=== PATIENT | male | born 1980 | race Caucasian/White ===

== ENCOUNTER 2021-06-21 12:39 | Emergency (ER) | payer BC, SELFPAY ==
[2021-06-21 12:45] VITALS: BP 142/88; PULSE 78; RESP 18; TEMP 36.7; O2SAT 95; BMI 33.6
--- NOTE | 2021-06-21 13:10 | ED.NEUROSD ---
HPI - Neuro Symptoms/Deficit General Chief Complaint: Neuro Symptoms/Deficit Stated Complaint: Issues With Left Side of Face Time Seen by Provider: 06/21/21 12:58 Source: patient Mode of arrival: Ambulatory History of Present Illness HPI Narrative: Patient is a 40-year-old male here for evaluation of weakness to the left side of his face and irritation to his left eye. He started noticing that his left eye was irritated on of last week. He noticed that his eye was very watery. Today he started noticing that he was talking funny and having problems swallowing. He also noticed the left side of his mouth does not go up when he smiles. He denies any headaches. No neurologic symptoms in his upper lower extremities. On Anticoagulants: No Related Data Previous Rx's Medication Instructions Recorded prednisone 20 mg tablet 60 mg PO DAILY 7 Days #21 tab 06/21/21 valacyclovir 1 gram tablet 1,000 mg PO TID 7 Days #21 tab 06/21/21 Allergies Allergy/AdvReac Type Severity Reaction Status Date / Time No Known Drug Allergies Allergy Verified 06/21/21 12:59 Review of Systems Constitutional Constitutional: Reports system reviewed and no additional complaints, except as documented, Denies fever(s) and Denies headache(s) Eyes Eyes: Reports as per HPI ENT Ears, Nose, Mouth, and Throat: Reports as per HPI and Denies headache(s) Cardiovascular Cardiovascular: Reports system reviewed and no additional complaints, except as documented Respiratory Respiratory: Reports system reviewed and no additional complaints, except as documented Integumentary/Breasts Skin/Breast: Reports system reviewed and no additional complaints, except as documented Neurologic Neurologic: Reports system reviewed and no additional complaints, except as documented, Reports as per HPI and Denies headache(s) Hematologic/Lymphatic On Anticoagulants: No Allergic/Immunologic Allergic/Immunologic: Reports system reviewed and no additional complaints, except as documented Patient History Medical History Patient denies medical problems Social History Smoking Status: Current every day smoker Smoking Status: Current every day smoker alcohol intake frequency: 0-2 drinks per day Substance Use Type: does not use Exam Initial Vital Signs Initial Vital Signs: Vital Signs Temperature 98.1 F 06/21/21 12:45 Pulse Rate 78 06/21/21 12:45 Respiratory Rate 18 06/21/21 12:45 Blood Pressure 142/88 H 06/21/21 12:45 Pulse Oximetry 95 06/21/21 12:45 Const General: cooperative, comfortable, well developed and well groomed Limitations: mental status not altered HENMT Head: normal to inspection and normocephalic Ears: TM's normal bilaterally Mouth: oral mucosae normal and moist mucous membranes Teeth and gingiva: fair dentition Eyes Pupils: PERRL EOM: EOM intact bilaterally Other: No corneal abrasion or uptake or dendrites located on the left eye with fluorescein staining. Neck Lymphatic: No lymphadenopathy Resp Effort & Inspection: normal respiratory effort Cardio Rate: regular rate Skin General: no rashes or lesions noted Neuro General: patient alert, patient awake and moves all extremities Speech: speech normal Gait: normal gait Other: Patient has motor deficits to the left side of his face to include his forehead and his left cheek. The rest of his cranial nerves unremarkable. There are no sensory deficits noted. Extrem General: normal to inspection and capillary refill normal Psych Appearance: grossly normal and well kempt Course Orders Ordered: Discontinued Medications Fluorescein Sodium (Fluorescein 1 Mg Strip) 1 mg EYE-BOTH NOW ONE Stop: 06/21/21 13:10 Last Admin: 06/21/21 13:28 Dose: 1 mg Documented by: BTONER Vital Signs Vital signs: Vital Signs - 8 hr 06/21/21 12:45 Temperature 98.1 F Pulse Rate 78 Respiratory Rate 18 Blood Pressure 142/88 H Pulse Oximetry 95 MDM - Neuro Symptoms/Deficit MDM Narrative Medical decision making narrative: Patient's physical exam today is consistent with Chung's palsy. Considered other etiologies such as stroke however I do feel we should hold on further workup. Will start the patient on steroids and also antiviral medications. Patient was given strict return precautions and follow-up instructions. He expressed understanding and agreement. Discharge Plan Departure Patient Disposition: Home Clinical Impression: Chung's palsy Instructions: Chung Palsy (Alternative Therapy), Chung Palsy Activity Restrictions/Additional Instructions: It is important that you protect your left eye. You may need to tape it shut at night when you sleep and also use the eyedrops to keep it moist. We do need to start you on medications. They were sent to [facility] in [place]. Contact your primary doctor for a follow-up. Return to the emergency department for any new or worsening symptoms. Prescriptions: New prednisone 20 mg tablet 60 mg PO DAILY 7 Days Qty: 21 0RF valacyclovir 1 gram tablet 1,000 mg PO TID 7 Days Qty: 21 0RF Referrals: Alvarado Evans MD [Primary Care Provider] -
[2021-06-21] MEDS: FLUORESCEIN 1 MG STRIP EYE-BOTH (13:28)
[2021-06-21 14:10] VITALS: BP 148/78; PULSE 74; RESP 17; O2SAT 99
== END 2021-06-21 14:10 | disposition home or self-care (01) ==
PROVIDERS: Emergency Provider Emergency Medicine; PCP Family Medicine
DX: G51.0 Bell's palsy (principal); F17.200 Nicotine dependence, unspecified, uncomplicated
CPT/HCPCS: 99282

== ENCOUNTER 2024-07-05 12:06 | Emergency (ER) | payer OTHER, SELFPAY ==
[2024-07-05 12:29] VITALS: BP 161/89; PULSE 55; RESP 16; TEMP 37; O2SAT 98; BMI 23.6
--- NOTE | 2024-07-05 13:39 | ED.BACK ---
HPI - Back Pain/Injury <Adalgisa Baig PA-C - Last Filed: 07/05/24 15:28> General Chief Complaint: Back Pain/Injury Stated Complaint: injured back at work Time Seen by Provider: 07/05/24 13:39 Source: patient History of Present Illness HPI Narrative: Mr. Pierre is a pleasant 43-year-old male with no reported past medical history who presents to the emergency department for bilateral lower back pain after he accidentally fell off the back of a work truck landing on his feet. Patient states was loading plywood onto truck when he accidentally fell off landing on his feet. Did not fall forward or backwards. Experienced immediate pain in the low back which made him throw up due to the severity. He has taken no medications prior to arrival. No upper back pain, heel pain, ankle pain, knee pain. No chest pain, shortness of breath, LOC. no hematuria or dysuria. He ambulates independently. No numbness or tingling of the lower extremities. Related Data Previous Rx's Medication Instructions Recorded lidocaine 5 % topical patch 1 patch topical DAILY #15 ea 07/05/24 (Lidoderm) methocarbamol 500 mg tablet 500 mg PO BEDTIME #10 tabs 07/05/24 naproxen 500 mg tablet 500 mg PO BID PRN pain #10 tabs 07/05/24 Allergies Allergy/AdvReac Type Severity Reaction Status Date / Time No Known Drug Allergies Allergy Verified 07/05/24 12:33 Review of Systems <Adalgisa Baig PA-C - Last Filed: 07/05/24 15:28> Review of Systems ROS Unobtainable: All systems reviewed & are unremarkable except as noted in HPI and below Patient History <Adalgisa Baig PA-C - Last Filed: 07/05/24 15:28> Medical History Patient denies medical problems Social History Smoking Status: Current every day smoker Smoking Status: Current every day smoker alcohol intake frequency: 0-2 drinks per day Exam <Adalgisa Baig PA-C - Last Filed: 07/05/24 15:28> Narrative Exam Narrative: GENERAL: 43 year old patient appears stated age. Well-developed patient, in no acute distress. HEAD: Atraumatic. Normocephalic. NECK: Trachea midline. Cervical ROM intact. CARDIOVASCULAR: Regular rate and rhythm. RESPIRATORY: ?Nonlabored respirations. ?Speaking in clear, full sentences. ?Clear to auscultation. Breath sounds equal bilaterally. No wheezes, rales, or rhonchi. ? GASTROINTESTINAL: Abdomen soft, non-tender, nondistended. EXTREMITIES: No edema or joint tenderness. BACK: Subjective tenderness in bilateral lumbar paraspinal muscle region. Pain worse with range of motion. No midline crepitus or deformities palpated. NEURO: AOx3. ?Clear speech. ?Moves all 4 extremities appropriately. SKIN: No rash or erythema of visible areas Initial Vital Signs Initial Vital Signs: Vital Signs Temperature 98.6 F 07/05/24 12:29 Pulse Rate 55 L 07/05/24 12:29 Respiratory Rate 16 07/05/24 12:29 Blood Pressure 161/89 H 07/05/24 12:29 Pulse Oximetry 98 07/05/24 12:29 Oxygen Delivery Method Room Air 07/05/24 12:29 <Suzanne Garcia MD - Last Filed: 07/05/24 18:24> Initial Vital Signs Initial Vital Signs: Vital Signs Temperature 98.6 F 07/05/24 12:29 Pulse Rate 55 L 07/05/24 12:29 Respiratory Rate 16 07/05/24 12:29 Blood Pressure 161/89 H 07/05/24 12:29 Pulse Oximetry 98 07/05/24 12:29 Oxygen Delivery Method Room Air 07/05/24 12:29 Course <Adalgisa Baig PA-C - Last Filed: 07/05/24 15:28> Orders Ordered: ED Orders 07/05/24 13:44 CT lumbar spine wo con Stat Discontinued Medications Acetaminophen (Acetaminophen 325 Mg Tablet) 975 mg PO NOW ONE Stop: 07/05/24 13:45 Last Admin: 07/05/24 13:52 Dose: 975 mg Documented By: DORIS Ketorolac Tromethamine (Ketorolac 30 Mg/Ml Vial) 30 mg IM NOW ONE Stop: 07/05/24 13:45 Last Admin: 07/05/24 13:52 Dose: 30 mg Documented By: DORIS Vital Signs Vital signs: Vital Signs - 8 hr 07/05/24 12:29 Temperature 98.6 F Pulse Rate 55 L Respiratory Rate 16 Blood Pressure 161/89 H Pulse Oximetry 98 Oxygen Delivery Method Room Air <Suzanne Garcia MD - Last Filed: 07/05/24 18:24> Orders Ordered: ED Orders 07/05/24 13:44 CT lumbar spine wo con Stat Discontinued Medications Acetaminophen (Acetaminophen 325 Mg Tablet) 975 mg PO NOW ONE Stop: 07/05/24 13:45 Last Admin: 07/05/24 13:52 Dose: 975 mg Documented By: DORIS Ketorolac Tromethamine (Ketorolac 30 Mg/Ml Vial) 30 mg IM NOW ONE Stop: 07/05/24 13:45 Last Admin: 07/05/24 13:52 Dose: 30 mg Documented By: DORIS Vital Signs Vital signs: Vital Signs - 8 hr 07/05/24 12:29 Temperature 98.6 F Pulse Rate 55 L Respiratory Rate 16 Blood Pressure 161/89 H Pulse Oximetry 98 Oxygen Delivery Method Room Air MDM - Back Pain/Injury <Adalgisa Baig PA-C - Last Filed: 07/05/24 15:28> Imaging Data Lumbar CT: Radiologist's Impression: PROCEDURE: CT LUMBAR SPINE WO CON INDICATIONS: bilateral low back pain after falling off truck land on feet TECHNIQUE: Noncontrast 3 mm thick sections acquired from the T12 level to the sacrum. Sagittal and coronal reformats were constructed. For radiation dose reduction, the following was used: automated exposure control. COMPARISON: None. FINDINGS: Image quality: Excellent. Bones: There is normal bony alignment. No acute vertebral body compression fractures. No suspicious lytic or blastic bony lesions. No pars defects. Slight degenerative disc height reduction posteriorly at L5-S1. Soft tissues: No retroperitoneal masses or hematomas. Visualized aorta is normal in caliber. IMPRESSION: Minimal degenerative changes along the low thoracic and lumbosacral spine with a slight degree of disc height reduction at the posterior 3rd of the L5-S1 disc space. No traumatic subluxation or paravertebral edema is found. [facility] Narrative Medical decision making narrative: 43-year-old male with no reported past medical history who presents to the emergency department for bilateral lower back pain after he accidentally fell off the back of a work truck landing on his feet. Differential diagnosis includes but is not limited to compression fracture, back sprain, strain, spasm, etc. On exam patient is in no acute distress, nontoxic appearing, ambulatory, no midline spinal tenderness or crepitus or deformity. He does have paraspinal lumbar pain. History concerning for possible compression injury, we will proceed with CT lumbar spine and treat pain with Tylenol and Toradol. CT lumbar spine reveals minimal degenerative changes along the low thoracic and lumbosacral spine with a slight degree of disc height reduction at the posterior 3rd of the L5-S1 disc space. No traumatic subluxation or paravertebral edema is found. Patient's symptoms most likely due to lumbar strain/sprain. Recommended ibuprofen and Tylenol or naproxen and Tylenol. Also prescribed Robaxin if needed and discussed risks. Prescribed lidocaine patches. Recommended gentle stretching and avoiding heavy lifting. Provided with a work note for light duty x1 week. Patient feeling better after ED treatment. He verbalized understanding of all information and is stable for discharge home. He understands the importance of follow up with PCP in 2-3 days. ER return precautions discussed. Discharge Plan Departure Patient Disposition: Home Clinical Impression: Strain of lumbar region Qualifiers: Encounter type: initial encounter Qualified Code(s): S39.012A - Strain of muscle, fascia and tendon of lower back, initial encounter DDD (degenerative disc disease), lumbar Qualifiers: Disc-related pain type: discogenic back pain only Qualified Code(s): M51.360 - Other intervertebral disc degeneration, lumbar region with discogenic back pain only Instructions: DI for Back Strain or Sprain Activity Restrictions/Additional Instructions: Today you were evaluated for back pain. Your CT scan does not show any fractures but it does show some chronic degenerative disease. Your symptoms are likely related to strains of the back muscles. I have prescribed you naproxen to take for pain or you can use ibuprofen. It is safe to take Tylenol with either of these medications. I have also prescribed a muscle relaxer to take at night however this can make you drowsy so do not drink alcohol or operate heavy machinery/drive a car while taking muscle relaxers. You can use topical lidocaine patches as well to help with the pain. Please rest, do gentle stretching, and avoid heavy lifting. Please follow up with the primary care doctor for further evaluation. Please take Ibuprofen (Motrin/Advil) or Acetaminophen (Tylenol) for pain. These are available over the counter. You may take Ibuprofen 600 mg every 8 hours with food for pain. You may also take Acetaminophen 650 mg every 4-6 hours for pain. Do not exceed 3000 mg of Tylenol a day as this can cause liver damage. Do not drink alcohol with either of these medications. Please follow up with your primary care doctor within the next 2-3 days for ER follow-up. (If you do not have a PCP you can call [phone]. ?to schedule an appointment with an [facility] Primary Care Provider) IF YOU DEVELOP ANY NEW OR WORSENING SYMPTOMS, RETURN TO THE ER! Please read the attached instructions, they highlight more specific treatments and interventions for you at home. Thank you for letting me participate in your care, Adalgisa Baig PA-C Prescriptions: New methocarbamol 500 mg tablet 500 mg PO BEDTIME Qty: 10 0RF lidocaine [Lidoderm] 5 % adhesive patch,medicated 1 patch topical DAILY Qty: 15 0RF Rx Instructions: leave on most painful area for up to 12 hrs naproxen 500 mg tablet 500 mg PO BID PRN (Reason: pain) Qty: 10 0RF Referrals: Alvarado Evans MD [Primary Care Provider] - Stand Alone Forms: Patient Portal/API/Survey, Work Release Note ED Sign-out <Suzanne Garcia MD - Last Filed: 07/05/24 18:24> Cosign ED Attending Cosannalisaature Attestation: I was immediately available in the department for consultation throughout this patient's visit. Suzanne Garcia MD
--- NOTE | 2024-07-05 13:44 | DI.CT.S_ITS ---
PROCEDURE: CT LUMBAR SPINE WO CON INDICATIONS: bilateral low back pain after falling off truck land on feet TECHNIQUE: Noncontrast 3 mm thick sections acquired from the T12 level to the sacrum. Sagittal and coronal reformats were constructed. For radiation dose reduction, the following was used: automated exposure control. COMPARISON: None. FINDINGS: Image quality: Excellent. Bones: There is normal bony alignment. No acute vertebral body compression fractures. No suspicious lytic or blastic bony lesions. No pars defects. Slight degenerative disc height reduction posteriorly at L5-S1. Soft tissues: No retroperitoneal masses or hematomas. Visualized aorta is normal in caliber. IMPRESSION: Minimal degenerative changes along the low thoracic and lumbosacral spine with a slight degree of disc height reduction at the posterior 3rd of the L5-S1 disc space. No traumatic subluxation or paravertebral edema is found. Dictated by: Travis Ahuja M.D. on 07/05/2024 at 14:20 Approved by: Travis Ahuja M.D. on 07/05/2024 at 14:22
[2024-07-05] MEDS: ACETAMINOPHEN 325 MG TABLET 975 MG PO (13:52)
[2024-07-05] MEDS: KETOROLAC 30 MG/ML VIAL IM (13:52)
--- NOTE | 2024-07-05 15:44 | PC.NURSE ---
Pt states he slipped off truck after trying to grab something and landed on his feet but was having back pain. Pt denies midline back pain but states pain is bothersome on either side of middle of back. No loss of bladder or bowel.
== END 2024-07-05 15:46 | disposition home or self-care (01) ==
PROVIDERS: Emergency Provider Physician Assistant; PCP Family Medicine
DX: S39.012A Strain of muscle, fascia and tendon of lower back, initial encounter (principal); M51.360 Other intervertebral disc degeneration, lumbar region with discogenic back pain only; V89.9XXA Person injured in unspecified vehicle accident, initial encounter; Y99.0 Civilian activity done for income or pay
CPT/HCPCS: 72131; 96372; 99283; 99284; J1885

== ENCOUNTER 2024-10-09 07:17 | Day surgery (SDC) | payer BC, SELFPAY ==
[2024-09-26 09:28] VITALS: BMI 24.7
[2024-10-09] VITALS (10 sets, daily range): BP systolic 104–136; BP diastolic 54–81; PULSE 69–93; RESP 14–20; TEMP 36.4–36.6; O2SAT 90–100; BMI 24.7
[2024-10-09] MEDS: ACETAMINOPHEN 325 MG TABLET 975 MG PO (07:44)
[2024-10-09] MEDS: LACTATED RINGERS 1,000 ML 42 ML IV (07:45)
[2024-10-09] MEDS: ALBUTEROL/IPRATROPIUM 3 ML AMPUL INH ×2 (08:43→10:28)
--- NOTE | 2024-10-09 08:43 | PM.PREOP ---
Pre-operative Note COVID-19 COVID-19 status: Not tested Interval Note History & Physical reviewed/Exam performed by Physician: Yes Changes to H&P: No ASA Class (for procedural sedation): II
[2024-10-09] MEDS: CEFAZOLIN 2 GM/100 ML PREMIX 100 ML IV (09:02)
--- NOTE | 2024-10-09 09:12 | SUR.OPER ---
Supine on padded OR bed, head on pillow, arms padded and tucked at sides, legs uncrossed, safety belt at thigh, tape over blanket over lower legs .
[2024-10-09] MEDS: BUPIVACAINE 0.5% W/ EPI (PF) 30 ML VIAL INJ (09:15)
--- NOTE | 2024-10-09 10:15 | PM.OP.1 ---
Operative Date/Time/Diagnoses Date of procedure: 10/09/24 Time of procedure: 10:15 Pre-op diagnosis: Left inguinal hernia Post-op diagnosis: other (Direct left inguinal hernia) Procedure & Clinicians Procedure: Laparoscopic left inguinal hernia repair with mesh Same procedure as scheduled: Yes Surgeon: Tre Carlos Domain Architect: Roderick Lopez Anesthesia Type: General Operative Notes Procedure in detail: The patient was given preoperative antibiotics. The patient was brought to the operating room, placed on the table in the supine position with the arms tucked and general anesthesia was induced. The abdomen was prepped and draped in the usual fashion. A time-out was performed. A 1 cm transverse incision was created superior to the umbilicus and dissection was carried down to the fascia. The fascia was grasped with a Angeline clamp to elevate the abdominal wall. The fascia was scored transversely with cautery. A Peon clamp was used to salmeron the peritoneum. The Merry port was placed and the abdomen was insufflated to 15 mmHg. The camera was inserted, there was no evidence of any injury from the entry. There was a fairly large direct left inguinal hernia. There was no right inguinal hernia. 5 mm ports were placed under direct vision in the mid left and mid right abdomen. The patient was positioned in Trendelenburg. We created left peritoneal flap. The peritoneum was dissected off the left cord structures, the direct sac was reduced and the Zachary's ligament was exposed. A large left Bard mesh was brought in and placed over the defect with the medial edge against Zachary's ligament. We then closed the peritoneal flap with a running 3-0 barbed suture. We took one last look around the abdomen and saw no other abnormalities. The suture was removed and accounted for. The 5 mm ports were removed under direct vision. The abdomen was desufflated. The Merry port was removed. Additional local was injected into the fascia and the fascial incision was closed with 2 interrupted 0 Vicryl sutures. The skin incisions were closed with 4 Monocryl, Steri-Strips and Band-Aids. EBL: 10 mL Roderick MONTEIRO provided assistance with exposure, retraction and closure of incisions. Post-operative Condition: stable Disposition: PACU
[2024-10-09] MEDS: OXYCODONE IR 5 MG TABLET PO (10:45)
[2024-10-09] MEDS: hydrOXYzine 50 MG/ML INJ IM (10:57)
== END 2024-10-09 11:30 | disposition home or self-care (01) ==
PROVIDERS: PCP Family Medicine; Referring Provider Surgery; Visit Provider Surgery
PROC: 0YQ64ZZ Repair Left Inguinal Region, Percutaneous Endoscopic Approach (ICD-10-PCS; CPT 49650; principal; 2024-10-09 08:45)
DX: K40.90 Unilateral inguinal hernia, without obstruction or gangrene, not specified as recurrent (principal); F17.210 Nicotine dependence, cigarettes, uncomplicated
CPT/HCPCS: 49650; C1781; J0330; J0690; J1100; J1885; J2405; J2704; J3010; J3410; J3490

== ENCOUNTER 2025-01-28 13:30 | Emergency (ER) | payer OTHER, SELFPAY ==
[2025-01-28 13:34] VITALS: BP 165/94; PULSE 69; RESP 18; TEMP 36.6; O2SAT 98; BMI 24.4
[2025-01-28] MEDS: ACETAMINOPHEN 325 MG TABLET 975 MG PO (16:10)
[2025-01-28] MEDS: KETOROLAC 30 MG/ML VIAL IM (16:10)
[2025-01-28] MEDS: CYCLOBENZAPRINE 10 MG TABLET PO (16:10)
[2025-01-28 16:49] VITALS: BP 186/93; PULSE 61; RESP 14; O2SAT 99
--- NOTE | 2025-01-28 17:46 | ED.BACK ---
HPI - Back Pain/Injury <Renzo Damon PA-C - Last Filed: 01/28/25 17:51> General Chief Complaint: Back Pain/Injury Stated Complaint: Hurt back at work. Time Seen by Provider: 01/28/25 14:37 Source: patient History of Present Illness HPI Narrative: 44-year-old male presents to the ED with 1 day of mid back pain. Patient states that he was trying to move a vanity which was too heavy, causing his midback to seize up. No numbness, tingling, weakness, saddle paresthesias, urinary retention, fever, chills. Patient has not taken any medication for the pain thus far. Related Data Home Medications ?Medication ?Instructions ?Recorded ?Confirmed ibuprofen 400 mg tablet 400 mg PO Q6H PRN Pain (Scale 09/16/24 10/09/24 Score 4-6) methocarbamol 750 mg tablet 750 mg PO TID PRN Pain (Scale 09/16/24 10/09/24 Score 4-6) Previous Rx's ?Medication ?Instructions ?Recorded lidocaine 5 % topical patch 1 patch topical DAILY #15 ea 07/05/24 (Lidoderm) cyclobenzaprine 10 mg tablet 10 mg PO TID PRN muscle spasm 5 01/28/25 days #14 tabs Allergies Allergy/AdvReac Type Severity Reaction Status Date / Time No Known Drug Allergies Allergy Verified 10/29/24 16:11 Review of Systems <Renzo Damon PA-C - Last Filed: 01/28/25 17:51> Constitutional Constitutional: Denies chills, Denies fatigue, Denies fever(s), Denies frequent falls, Denies lethargy and Denies weakness Eyes Eyes: Denies change in vision, Denies eye discharge, Denies irritation and Denies loss of vision ENT Ears, Nose, Mouth, and Throat: Denies change in voice, Denies dizziness, Denies neck pain, Denies sore throat and Denies throat swelling Cardiovascular Cardiovascular: Denies chest pain, Denies irregular heart rhythm, Denies lightheadedness, Denies palpitations, Denies dyspnea, Denies dyspnea on exertion and Denies orthopnea Respiratory Respiratory: Denies cough, Denies dyspnea, Denies dyspnea on exertion and Denies wheezing Gastrointestinal Gastrointestinal: Denies abdominal pain, Denies change in bowel habits, Denies diarrhea, Denies nausea and Denies vomiting Musculoskeletal Musculoskeletal: Reports back pain, Denies neck pain and Denies numbness Integumentary/Breasts Skin/Breast: Denies pruritus, Denies erythema, Denies rash and Denies wounds Neurologic Neurologic: Denies behavioral changes, Denies confusion, Denies dizziness, Denies frequent falls, Denies loss of vision, Denies numbness and Denies weakness Psychiatric Psychiatric: Denies anxiety, Denies behavioral changes, Denies confusion, Denies depression, Denies homicidal ideation and Denies suicidal ideation Endocrine Endocrine: Denies fatigue, Denies flushing and Denies palpitations Hematologic/Lymphatic Hematologic/Lymphatic: Denies easy bruising Allergic/Immunologic Allergic/Immunologic: Denies urticaria, Denies throat swelling and Denies wheezing Patient History <Renzo Damon PA-C - Last Filed: 01/28/25 17:51> Medical History Patient denies medical problems Social History household members: spouse Smoking Status: Current every day smoker alcohol intake: current Smoking Status: Current every day smoker tobacco type: cigarettes alcohol intake frequency: 0-2 drinks per day Exam <Renzo Damon PA-C - Last Filed: 01/28/25 17:51> Narrative Exam Narrative: Const General:?cooperative, healthy appearing and comfortable [facility] Head:?normal to inspection Ears:?hearing grossly normal bilaterally Nose:?external nose normal Face and sinus:?normal facial exam and sinuses nontender Mouth:?oral mucosae normal Throat:?posterior oropharynx normal Eyes General:?appearance normal, both eyes and all related structures Neck Neck:?normal visual inspection and no lymphadenopathy noted Resp Effort & Inspection:?normal respiratory effort Auscultation:?clear to auscultation bilaterally Cardio Rate:?regular rate Rhythm:?regular rhythm Musculoskeletal No midline tenderness to palpation. No paraspinal tenderness to palpation. Strength and sensation intact. Full range of motion. Gait normal. Neurovascularly intact. Neuro General:?patient alert, patient awake and patient oriented x3 Initial Vital Signs Initial Vital Signs: Vital Signs Temperature 98 F 01/28/25 13:34 Pulse Rate 69 01/28/25 13:34 Respiratory Rate 18 01/28/25 13:34 Blood Pressure 165/94 H 01/28/25 13:34 Pulse Oximetry 98 01/28/25 13:34 Oxygen Delivery Method Room Air 01/28/25 13:34 <Bor Almonte MD - Last Filed: 01/28/25 19:14> Initial Vital Signs Initial Vital Signs: Vital Signs Temperature 98 F 01/28/25 13:34 Pulse Rate 69 01/28/25 13:34 Respiratory Rate 18 01/28/25 13:34 Blood Pressure 165/94 H 01/28/25 13:34 Pulse Oximetry 98 01/28/25 13:34 Oxygen Delivery Method Room Air 01/28/25 13:34 Course <Renzo Damon PA-C - Last Filed: 01/28/25 17:51> Orders Ordered: Discontinued Medications Acetaminophen (Acetaminophen 325 Mg Tablet) 975 mg PO NOW ONE Stop: 01/28/25 16:06 Last Admin: 01/28/25 16:10 Dose: 975 mg Documented By: COMFORT Cyclobenzaprine HCl (Cyclobenzaprine 10 Mg Tablet) 10 mg PO NOW ONE Stop: 01/28/25 16:06 Last Admin: 01/28/25 16:10 Dose: 10 mg Documented By: COMFORT Ketorolac Tromethamine (Ketorolac 30 Mg/Ml Vial) 30 mg IM NOW ONE Stop: 01/28/25 16:06 Last Admin: 01/28/25 16:10 Dose: 30 mg Documented By: COMFORT Vital Signs Vital signs: Vital Signs - 8 hr 01/28/25 13:34 01/28/25 16:49 Temperature 98 F Pulse Rate 69 61 Respiratory Rate 18 14 Blood Pressure 165/94 H 186/93 H Pulse Oximetry 98 99 Oxygen Delivery Method Room Air Room Air <Bro Almonte MD - Last Filed: 01/28/25 19:14> Orders Ordered: Discontinued Medications Acetaminophen (Acetaminophen 325 Mg Tablet) 975 mg PO NOW ONE Stop: 01/28/25 16:06 Last Admin: 01/28/25 16:10 Dose: 975 mg Documented By: COMFORT Cyclobenzaprine HCl (Cyclobenzaprine 10 Mg Tablet) 10 mg PO NOW ONE Stop: 01/28/25 16:06 Last Admin: 01/28/25 16:10 Dose: 10 mg Documented By: COMFORT Ketorolac Tromethamine (Ketorolac 30 Mg/Ml Vial) 30 mg IM NOW ONE Stop: 01/28/25 16:06 Last Admin: 01/28/25 16:10 Dose: 30 mg Documented By: COMFORT Vital Signs Vital signs: Vital Signs - 8 hr 01/28/25 13:34 01/28/25 16:49 Temperature 98 F Pulse Rate 69 61 Respiratory Rate 18 14 Blood Pressure 165/94 H 186/93 H Pulse Oximetry 98 99 Oxygen Delivery Method Room Air Room Air MDM - Back Pain/Injury <Renzo Damon PA-C - Last Filed: 01/28/25 17:51> [facility] Narrative Medical decision making narrative: 44-year-old male presents to the ED with 1 day of mid back pain. Physical exam is reassuring, no indication for imaging at this time. No midline tenderness to palpation no paraspinal tenderness to palpation. No red flag symptoms. Patient was given a dose of Toradol, Tylenol and Flexeril in the ED with good relief. Recommend continuing ibuprofen, Tylenol at home. Prescribed a muscle relaxant. Recommend follow-up with PCP as soon as possible. ED return precautions discussed with patient. Patient verbalized understanding. Medical records reviewed: Yes <Bro Almonte MD - Last Filed: 01/28/25 19:14> [facility] Narrative Medical decision making narrative: 44-year-old male presents to the ED with 1 day of mid back pain. Physical exam is reassuring, no indication for imaging at this time. No midline tenderness to palpation no paraspinal tenderness to palpation. No red flag symptoms. Patient was given a dose of Toradol, Tylenol and Flexeril in the ED with good relief. Recommend continuing ibuprofen, Tylenol at home. Prescribed a muscle relaxant. Recommend follow-up with PCP as soon as possible. ED return precautions discussed with patient. Patient verbalized understanding. Medical records reviewed: Yes I was available for consult but did not actually see the patient. Discharge Plan Departure Patient Disposition: Home Clinical Impression: Acute back pain Qualifiers: Back pain location: thoracic back pain Back pain laterality: unspecified Qualified Code(s): M54.6 - Pain in thoracic spine Instructions: DI for Back Strain or Sprain Activity Restrictions/Additional Instructions: You were evaluated in the ED today for back pain. You were given a dose of ketorolac, Tylenol, Flexeril. You have been prescribed Flexeril to continue taking at home. You may also take 800 mg of ibuprofen every 8 hours with food for pain. You can add on 1000 mg of Tylenol every 8 hours. Please follow-up with your PCP as soon as possible. Return to the ED if you have worsening symptoms, numbness, tingling, weakness, urinary difficulties. Prescriptions: New cyclobenzaprine 10 mg tablet 10 mg PO TID PRN (Reason: muscle spasm) 5 Days Qty: 14 0RF No Action ibuprofen 400 mg tablet 400 mg PO Q6H PRN (Reason: Pain (Scale Score 4-6)) methocarbamol 750 mg tablet 750 mg PO TID PRN (Reason: Pain (Scale Score 4-6)) lidocaine [Lidoderm] 5 % adhesive patch,medicated 1 patch topical DAILY Qty: 15 0RF Rx Instructions: leave on most painful area for up to 12 hrs Referrals: Eliseo Moura MD [Primary Care Provider, Family Practice] Stand Alone Forms: Patient Portal/API
== END 2025-01-28 16:50 | disposition home or self-care (01) ==
PROVIDERS: Emergency Provider Student in an Organized Health Care Education/Training Program; PCP Family Medicine
DX: M54.6 Pain in thoracic spine (principal); X50.0XXA Overexertion from strenuous movement or load, initial encounter
CPT/HCPCS: 96372; 99283; J1885